=== PATIENT | female | born 1990 | race Caucasian/White ===

== ENCOUNTER 2018-03-27 16:38 | Day surgery (SDC) | payer BC ==
[2018-03-27 17:39] VITALS: BMI 25.3
[2018-03-27] MEDS ORDERED: Ondansetron PF 4 MG/2 ML Vial IVP PRN (17:53)
[2018-03-27] MEDS ORDERED: Lactated Ringer's 1,000 ML IV SCH ×2 (18:00)
[2018-03-27 18:30] LABS: #Lymphocytes 0.8 thou/uL (1.20-3.40); #Monocytes 0.5 thou/uL (0.11-0.59); #Neutrophils 10.6 thou/uL (1.40-6.50); %Basophils 0.2 % (0.0-1.0); %Eosinophils 0.4 % (0.0-10.0); %Lymphocytes 6.6 % (21.0-51.0); %Monocytes 3.9 % (0.0-10.0); Hemoglobin 13.1 g/dL (12.0-16.0); Mean Corpuscular HGB CONC 32.8 g/dL (32.0-36.0); Mean Corpuscular Hemoglobin 30.3 pg (27.0-31.0); Mean Corpuscular Volume 92.5 fL (78.0-98.0); Mean Platelet Volume 7.2 fL (7.4-10.4); Platelet Count 198 thou/uL (130-400); RBC Distribution Width 12.7 % (11.5-14.5); Red Blood Cell (RBC) Count 4.31 mill/uL (4.20-5.40); White Blood Cell (WBC) Count 11.9 thou/uL (4.8-10.8)
[2018-03-27 18:41] LABS: Bilirubin Negative (Negative); Blood, Urine Negative (Negative); Clarity CLEAR (Clear); Glucose, Urine (Dipstick) Negative (Negative); Leukocyte Small (Negative); Nitrite Negative (Negative); Protein, Urine (Dipstick) Negative (Neg-Trace); Urobilinogen 0.2 mg/dL (0.2-1.0)
[2018-03-27 18:43] LABS: Bacteria/HPF None Seen HPF (None Seen); Hyaline Casts/LPF 4-6 HYALINE CAST LPF (0-3 Hyaline); Pathc Cast-AUWi Flag 0.72 (0-2.49)
[2018-03-27 18:51] LABS: ALT (SGPT) 12 U/L (8-55); AST (SGOT) 19 U/L (5-34); Albumin 3.5 g/dL (3.5-5.0); Alkaline Phosphatase 115 U/L (40-150); Anion Gap 13 mmol/L (10-20); BUN (Urea Nitrogen) 9 mg/dL (7.0-18.7); Bilirubin, Total 0.6 mg/dL (0.2-1.2); Calc. Creatinine Clearance 162 mL/min (70-130); Calcium 8.7 mg/dL (7.8-10.44); Carbon Dioxide 20 mmol/L (22-29); Chloride 105 mmol/L (98-107); Estimated GFR-MDRD Greater than 90; Glucose 76 mg/dL (70-105); Potassium 3.7 mmol/L (3.5-5.1); Protein, Total 6.5 g/dL (6.0-8.3); Sodium 134 mmol/L (136-145)
--- NOTE | 2018-03-28 05:50 | SS ---
DATE OF EVALUATION: 03/27/2018 REGULAR PHYSICIAN: Julio Cesar Hernandez D.O. EVALUATING PHYSICIAN: Jatinder Ureña M.D. CHIEF COMPLAINT: Nausea and vomiting. HISTORY OF PRESENT ILLNESS: Ms. Cerda is a 28-year-old white G3, P2-0-0-2 with an estimated date of confinement of 04/27/2018 who presents complaining of a 24-hour history of nausea and vomiting. She reports that her has similar symptoms at home. She denies vaginal bleeding or significan t uterine contractions. She has been unable to tolerate any type of oral intake. PAST OBSTETRICAL HISTORY: Vaginal delivery at term x2. Her current care has been with Dr. David castillout reported complications. PAST MEDICAL HISTORY: None. PAST SURGICAL HISTORY: None. CURRENT MEDICATIONS: vitamins. ALLERGIES: No known allergies. SOCIAL HISTORY: She denies tobacco, alcohol, or drug use. FAMILY HISTORY: Unremarkable. REVIEW OF SYSTEMS: Positive for nausea, vomiting. Negative for fever, chills, vaginal bleeding or r uptured membranes. PHYSICAL EXAMINATION: VITAL SIGNS: Stable and she is afebrile in labor and delivery. ABDOMEN: Soft and nontender. There is no guarding or rebound. heart rate tracing is stable with spontaneous accelerations and good beat to beat variability. Irregular but mild uterine contractions are seen. LABORATORY DATA: White count of 11.9, hemoglobin and hematocrit 13.1 and 39.8 respectively, platelet count 198,000. Chemistries show a sodium of 134, potassium of 3.7, chloride of 105. Creatinine is 0.6, total bilirubin 0.6, AST and ALT are 19 and 12 respectively with an alkaline phosphatase of 115. Urinalysis shows a specific gravity of 1.020 with negative protein, negative glucose, trace ketones , negative blood, negative nitrites and negative bilirubin. The patient was given a liter of fluid and also Zofran 4 mg. She feels much better and now is reques ting to go home. ASSESSMENT: 1. A 35-1/2-week intrauterine . 2. Nausea and vomiting, symptoms improved with IV fluid and Zofran. PLAN: The patient is requesting discharge home to take care of her small children. She was given co mplete labor precautions and told to return should her symptoms not continue to improve. She was given a prescription for Zofran 4 mg ODT #15 and she is to take one every 6 hours as needed. Varun choudhury voiced understanding of her discharge instructions and was sent home in good condition.
== END 2018-03-27 20:15 | disposition home or self-care (01) ==
LOC: L&D/OP 16:38
PROVIDERS: ATTEND Obstetrics & Gynecology
DX: O21.2 Late vomiting of pregnancy (principal); Z3A.35 35 weeks gestation of pregnancy; Z79.899 Other long term (current) drug therapy
CPT/HCPCS: 80053; 81003; 81015; 85025; 96360; 96361; 96375; 99283; J2405

== ENCOUNTER 2018-04-20 12:50 | Inpatient (IN) | payer BC ==
[~2018-04-20 12:50] MED LIST: Bupivacaine/Epinephrine 0.25% 30 ML VIAL ONE
[2018-04-20 13:46] VITALS: BMI 25.0
[2018-04-20 13:47] LABS: Amnisure Test RUPTURE DETECTED (No Rupture)
[2018-04-20 13:48] LABS: Amnisure Internal Control QC ACCEPTABLE (ACCEPTABLE)
[2018-04-20] MEDS: Lactated Ringer's 1,000 ML IV SCH ×4 (14:35→21:20)
[2018-04-20] MEDS ORDERED: Promethazine HCl 25 MG/ML VIAL IM PRN ×2 (14:40→16:58)
[2018-04-20] MEDS ORDERED: HYDROcodone/Acetaminophen 5/325 mg Tablet PO PRN ×2 (14:40)
[2018-04-20] MEDS ORDERED: NS / Oxytocin 40 units/1000ml 1,000 ML IV PRN (14:40)
[2018-04-20] MEDS ORDERED: Lidocaine 1% (PF) 30 ML VIAL SC PRN (14:40)
[2018-04-20] MEDS ORDERED: Butorphanol Tartrate 1 MG/ML VIAL SLOW IVP PRN (14:40)
[2018-04-20] MEDS ORDERED: Ibuprofen 800 MG TAB PO PRN (14:40)
[2018-04-20] MEDS ORDERED: NS w/ Oxytocin 10 units 500 ML IV SCH (14:45)
[2018-04-20 15:18] LABS: Hemoglobin 13.6 g/dL (12.0-16.0); Mean Corpuscular HGB CONC 33.9 g/dL (32.0-36.0); Mean Corpuscular Hemoglobin 30.9 pg (27.0-31.0); Mean Corpuscular Volume 91.2 fL (78.0-98.0); Mean Platelet Volume 7.4 fL (7.4-10.4); Platelet Count 218 thou/uL (130-400); RBC Distribution Width 12.9 % (11.5-14.5); Red Blood Cell (RBC) Count 4.39 mill/uL (4.20-5.40); White Blood Cell (WBC) Count 10.8 thou/uL (4.8-10.8)
[2018-04-20 15:57] LABS: Syphilis Antibody Nonreactive (Nonreactive); Syphilis Antibody Index 0.05 S/CO (<1.00 Non-Reactive)
[2018-04-20 15:58] LABS: HBSAg Index 0.21 S/CO (0-0.99); HIV (1/2) Antibody/Antigen Non-Reactive (NonReactive); HIV 1/2 INDEX 0.11 S/CO (<1.00); Hep B Surf Ag Non-Reactive S/CO (NonReactive)
[2018-04-20] MEDS ORDERED: Fentanyl 4 mcg/Bup 0.1% Cadd 100 ML ONE (16:00)
[2018-04-20] MEDS ORDERED: Naloxone HCl 0.4 mg/ml Vial IVP PRN ×2 (16:58)
[2018-04-20] MEDS ORDERED: Acetaminophen 325 MG TAB PO PRN (16:58)
[2018-04-20] MEDS ORDERED: Ondansetron PF 4 MG/2 ML Vial IVP PRN (16:58)
[2018-04-20] MEDS ORDERED: diphenhydrAMINE 50 MG/ML VIAL IVP PRN (16:58)
[2018-04-20] MEDS ORDERED: Lactated Ringer's 500 ML IV PRN (16:58)
[2018-04-20] MEDS ORDERED: ePHEDrine/0.9% NaCl/PF SYRINGE 50 mg/10 ml SLOW IVP PRN (16:58)
[2018-04-20] MEDS ORDERED: Eucerin (Mineral Oil/Petrolatum,White) 30 gm Jar TOP PRN (16:58)
[2018-04-20] MEDS ORDERED: Fentanyl 4 mcg/Bupivacaine 0.1% Cassette 100 ML EPIDURAL SCH (17:00)
[2018-04-20] MEDS ORDERED: Communication Order-Pharmacy FS SCH (17:00)
[2018-04-20] MEDS ORDERED: Misoprostol 200 MCG TAB ONE ×2 (21:49)
--- NOTE | 2018-04-20 22:24 | PDOC.LDHP ---
Labor and Delivery H&P Chief complaint: loss of fluid (SROM at 0130.) HPI: patient had leaking fluid with extra mucus startin at 0130. Came to hospital 12 hours later having minimal irregular contractions. Current gestational age (weeks): 39 Due date: 04/27/18 Dating criteria: last menstrual period Grav: 3 Para: 2 OB History Details: 2014 7.15 2016 7.5 Current complications: none Abnormal US findings: No Past Medical History: superficial thrombophlebitis Current medications: pre- vitamins Previous surgical history: none Allergies/Adverse Reactions: Allergies Allergy/AdvReac Type Severity Reaction Status Date / Time No Known Allergies Allergy Verified 03/27/18 17:40 Social history: none - Physical Exam Vital signs reviewed and normal: yes General: NAD, resting Lungs: nonlabored breathing Abdomen: gravid FHT: category 1 - Vaginal Exam cm dilated: 2 Effacement: 75% Station: -2 - OB Labs Blood type: O RH: positive Antibody Screen: negative HIV: negative RPR: negative HEPSAg: negative 1 hour GCT: negative GBS: negative Urine drug screen: not done - Assessment L&D Assessment: term rupture in membranes - Plan Plan: admit to L&D, labor augmentation if indicated
--- NOTE | 2018-04-20 22:26 | PDOC.OPDEL ---
OB Operative/Delivery Note Delivery Dr/Surgeon: Barrie Hilton Pre-Delivery Diagnosis: ruptured membrane Procedure/Post Delivery Dx: spontaneous vaginal delivery Anesthesia: epidural - Findings A Sex: female Weight: 7 lb 5 oz - 1 min: 8 - 5 min: 9 - Additional Findings/Plan Placenta delivered: spontaneous Repaired Obstetrical Laceration: 1st degree (vaginal) Estimated blood loss: 148mL QBL Post delivery plan: routine recovery
[2018-04-21] MEDS ORDERED: Misoprostol 200 MCG TAB VAG PRN (00:25)
[2018-04-21] MEDS ORDERED: NS / Oxytocin 40 units/1000ml 1,000 ML IV SCH (00:25)
[2018-04-21] MEDS ORDERED: Benzocaine/Menthol 20-0.5% 60 ML CAN TOP PRN (00:25)
[2018-04-21] MEDS ORDERED: Bisacodyl 10 MG SUPP PR PRN (00:25)
[2018-04-21] MEDS ORDERED: Ondansetron PF 4 MG/2 ML Vial IVP PRN (00:25)
[2018-04-21] MEDS ORDERED: Methylergonovine 0.2 MG/ML VIAL IM PRN (00:25)
[2018-04-21] MEDS ORDERED: HYDROcodone/Acetaminophen 5/325 mg Tablet PO PRN ×2 (00:25)
[2018-04-21] MEDS ORDERED: Milk Of Magnesia 30 ML UDCUP PO PRN (00:25)
[2018-04-21] MEDS: Ibuprofen 800 MG TAB PO SCH ×4 (01:15→20:38)
--- NOTE | 2018-04-21 05:58 | PDOC.PP ---
Post Progress Note Post Day #: 1 Subjective: Doing well, no acute complaints PO intake tolerated: yes Flatus: yes Ambulation: yes Vital Signs (12 hours) Temp Pulse Resp BP 04/21/18 03:04 98.2 F 77 18 113/62 04/21/18 01:40 98.3 F 73 20 115/67 04/21/18 00:40 98.2 F 71 18 117/62 Weight Weight 165 lb - Physical Examination General: NAD Cardiovascular: no m/r/g Respiratory: clear to auscultation bilaterally Abdominal: + bowel sounds, lochia, no distention, appropriately TTP Extremities: negative homans (B) Neurological: no gross focal deficits Psychiatric: A&Ox3, normal affect Result Diagrams: 04/20/18 15:10 Additional Labs: Post Labs Blood Type O POSITIVE 04/20/18 15:10 Hep Bs Antigen Non-Reactive S/CO (NonReactive) 04/20/18 15:10 (1) Vaginal delivery Code(s): O80 - ENCOUNTER FOR FULL-TERM UNCOMPLICATED DELIVERY Status: Acute - Assessment/Plan PPD 0 to 1, s/p yseterday at 2230 or so. Doing well. BPs wnl. Follow BPs today and probable home tomorrow AM as multiparous.
[2018-04-21] MEDS: Ferrous Sulfate 325 MG TAB PO SCH ×2 (08:56→14:14)
[2018-04-21] MEDS: Docusate Calcium (SURFAK) 240 MG CAP PO SCH ×2 (08:57→20:38)
[2018-04-21] MEDS ORDERED: Adacel (T-DAP) 0.5 ML VIAL IM ONE (09:00)
--- NOTE | 2018-04-22 06:30 | PDOC.PP ---
Post Progress Note Post Day #: PPD#2 Subjective: No complaints, ready for home. PO intake tolerated: yes Ambulation: yes Vital Signs (12 hours) Pulse Ox 04/21/18 20:00 99 Weight Weight 74.843 kg - Physical Examination General: NAD Respiratory: non-labored breathing Neurological: no gross focal deficits Psychiatric: normal affect Result Diagrams: 04/20/18 15:10 Additional Labs: Post Labs Blood Type O POSITIVE 04/20/18 15:10 Hep Bs Antigen Non-Reactive S/CO (NonReactive) 04/20/18 15:10 - Assessment/Plan DC home. Precautions. RTC [address] Hernandez.
[2018-04-22 08:31] VITALS: BP 114/64; TEMP 97.8
[2018-04-22] MEDS: Ferrous Sulfate 325 MG TAB PO SCH (09:08)
[2018-04-22] MEDS: Docusate Calcium (SURFAK) 240 MG CAP PO SCH (09:09)
== END 2018-04-22 11:55 | disposition home or self-care (01) | DRG 807 ==
LOC: L&D/OP 12:50 → L&D 13:55 → 3SE 04-21 00:37
PROVIDERS: ADMIT Obstetrics & Gynecology; ATTEND Obstetrics & Gynecology
PROC: 10E0XZZ Delivery of Products of Conception, External Approach (ICD-10-PCS; principal; 2018-04-20)
PROC: 0HQ9XZZ Repair Perineum Skin, External Approach (ICD-10-PCS; 2018-04-20)
DX: O70.0 First degree perineal laceration during delivery (principal); Z37.0 Single live birth; Z3A.39 39 weeks gestation of pregnancy; O69.81X0 Labor and delivery complicated by cord around neck, without compression, not applicable or unspecified
CPT/HCPCS: 36415; 51702; 84112; 85027; 86780; 86850; 86900; 86901; 87340; 87389; 99285; J2001